=== PATIENT | male | born 1990 | race Caucasian/White ===

== ENCOUNTER 2017-10-10 18:26 | Emergency (ER) | payer BC, OTHER ==
[2017-10-10] MEDS: HYDROcodone/APAP 5/325MG 1 TAB TABLET PO (19:21)
== END 2017-10-10 19:48 | disposition home or self-care (01) ==
LOC: ER 18:26
DX: S89.91XA Unspecified injury of right lower leg, initial encounter (principal); V86.59XA Driver of other special all-terrain or other off-road motor vehicle injured in nontraffic accident, initial encounter; Y93.I9 Activity, other involving external motion; Y92.89 Other specified places as the place of occurrence of the external cause; Y99.8 Other external cause status
CPT/HCPCS: 29505; 73562; 73590; 99284

== ENCOUNTER 2018-09-20 14:25 | Emergency (ER) | payer BC ==
[~2018-09-20] VITALS: Ht 167.6 cm; Wt 54.4 kg
[~2018-09-20 14:25] MED LIST: HYDR-3164 PO; IBUP-1060 PO
[2018-09-20 14:28] VITALS: BP 128/80
--- NOTE | 2018-09-20 14:52 | PHYS DOC ---
Past Medical History Past Medical History: No Pertinent History (RASHAUN QUINTERO APRN) Past Surgical History: Tonsillectomy Additional Past Surgical Histo: TUBES IN EARS (RASHAUN QUINTERO APRN) Alcohol Use: Occasionally Drug Use: None (RASHAUN QUINTERO APRN) Adult General Chief Complaint Chief Complaint: LOWEREXTREMITY INJURY [facility] HPI Patient is a 28 year old male who presents with right ankle pain after his ankle hit a machine he was using. An hour prior to arrival. Rates his pain as 8 out of 10 with the character as throbbing. Did not take any medicines prior to arrival. (RASHAUN QUINTERO APRN) Review of Systems Review of Systems Constitutional: Denies fever or chills [] Eyes: Denies change in visual acuity, redness, or eye pain [] HENT: Denies nasal congestion or sore throat [] Respiratory: Denies cough or shortness of breath [] Cardiovascular: No additional information not addressed in HPI [] GI: Denies abdominal pain, nausea, vomiting, bloody stools or diarrhea [] : Denies dysuria or hematuria [] Musculoskeletal: Denies back pain or joint pain with exception of right ankle. Integument: Denies rash or skin lesions [] Neurologic: Denies headache, focal weakness or sensory changes [] Endocrine: Denies polyuria or polydipsia [] Complete systems were reviewed and found to be within normal limits, except as documented in this note. (RASHAUN QUINTERO APRN) Allergies Allergies Allergies Coded Allergies Type Severity Reaction Last Updated Verified No Known Drug Allergies 01/18/14 No (FARAZ SANDERS MD) Physical Exam Physical Exam Constitutional: Well developed, well nourished, no acute distress, non-toxic appearance. [] HENT: Normocephalic, atraumatic, bilateral external ears normal, oropharynx moist, no oral exudates, nose normal. [] Eyes: PERRLA, EOMI, conjunctiva normal, no discharge. [] Neck: Normal range of motion, no tenderness, supple, no stridor. [] Cardiovascular:Heart rate regular rhythm, no murmur [] Lungs & Thorax: Bilateral breath sounds clear to auscultation [] Abdomen: Soft, no tenderness, no masses, no pulsatile masses. [] Skin: Warm, dry, no erythema, no rash. [] Extremities: No tenderness with exception of R ankle, no cyanosis, no clubbing, ROM reduced in R ankle, no edema. [] Neurologic: Alert and oriented X 3, normal motor function, normal sensory function, no focal deficits noted. [] Psychologic: Affect normal, judgement normal, mood normal. [] (RASHAUN QUINTERO APRN) Current Patient Data Vital Signs Vital Signs Date Time Temp Pulse Resp B/P (MAP) Pulse Ox O2 Delivery O2 Flow Rate FiO2 09/20/18 14:28 98.0 83 16 128/80 (96) 100 Room Air 98.0 (FARAZ SANDERS MD) EKG EKG [] (RASHAUN QUINTERO APRN) Radiology/Procedures Radiology/Procedures []PATIENT: RASHEED ROACHUNT: [id number]#: [id number] : 1990 LOCATION: ER AGE: 28 SEX: M EXAM STATUS: REG ER ORD. PHYSICIAN: RASHAUN QUINTERO APRN REASON: JUMPED OUT OF A TRACK HOE AT WORK, PAIN TO RIGHT ANKLE PROCEDURE: ANKLE RIGHT 3V Three-view right ankle dated 09/20/2018. No comparison available. Clinical data indication: Pain after injury. FINDINGS: 3 views of the right ankle show normal bony alignment. No displaced fracture. Talar dome is intact. No acute osseous or articular abnormality. There is mild soft tissue swelling. IMPRESSION: Mild soft tissue swelling with no evidence of underlying displaced fracture. Electronically signed by: Rashaun Andres MD (09/20/2018 3:05 PM) [facility] (RASHAUN QUINTERO APRN) Course & Med Decision Making Course & Med Decision Making Pertinent Labs and Imaging studies reviewed. (See chart for details) Will get x-ray. Offered pain medication and patient declined. xray is negative. Will place in corry wrap and d/c (RASHAUN QUINTERO APRN) Course & Med Decision Making Patient was seen by WILBERTO, I did not evaluate the patient unless otherwise specified in the chart. (FARAZ SANDERS MD) Dragon Disclaimer Dragon Disclaimer This electronic medical record was generated, in whole or in part, using a voice recognition dictation system. (QUINTERO,RASHAUN SLIPMAN) Departure Departure Impression: Primary Impression: Ankle pain, right Disposition: 01 HOME, SELF-CARE Condition: STABLE Referrals: NO PCP (PCP) Patient Instructions: Elastic Bandage and RICE Additional Instructions: Use RICE and compression bandage. Come back to ER as needed. Problem Qualifiers Primary Impression: Ankle pain, right Chronicity: acute Qualified Codes: M25.571 - Pain in right ankle and joints of right foot RASHAUN QUINTERO APRN September 20, 2018 14:52 FARAZ SANDERS MD September 20, 2018 17:31
--- NOTE | 2018-09-20 15:08 | RAD ---
Three-view right ankle dated 09/20/2018. No comparison available. Clinical data indication: Pain after injury. FINDINGS: 3 views of the right ankle show normal bony alignment. No displaced fracture. Talar dome is intact. No acute osseous or articular abnormality. There is mild soft tissue swelling. IMPRESSION: Mild soft tissue swelling with no evidence of underlying displaced fracture. Electronically signed by: Rashaun Andres MD (09/20/2018 3:05 PM) [facility]
== END 2018-09-20 15:30 | disposition home or self-care (01) ==
LOC: ER 14:25
DX: M25.571 Pain in right ankle and joints of right foot (principal); Z90.89 Acquired absence of other organs; Z96.22 Myringotomy tube(s) status
CPT/HCPCS: 73610; 99284